=== PATIENT | female | born 2000 | race Caucasian/White ===

== ENCOUNTER 2021-10-02 22:26 | Emergency (ER) | payer OTHER, SELFPAY ==
[2021-10-02 22:08] VITALS: BP 140/100; PULSE 124; RESP 16; TEMP 36.6; O2SAT 100; BMI 30.2
[2021-10-02 22:09] VITALS: BMI 28.1
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
[2021-10-02 22:43] LABS: Basophils # 0.1 K/mm3 (0-0.2); Eosinophils # 0.1 K/mm3 (0.0-0.4); Eosinophils % 0.7 % (0.1-12.0); Hematocrit 38.6 % (37.0-47.0); Hemoglobin 12.2 g/dL (12.2-16.2); Lymphocytes % 21.3 % (10-50); Mean Corpuscular HGB Conc 31.7 g/dL (31.8-35.4); Mean Corpuscular Hemoglobin 25.5 pg (27.0-31.2); Mean Corpuscular Volume 80.5 fl (81-99); Mean Platelet Volume 8.5 fl (7.4-10.4); Monocytes # 0.5 K/mm3 (0.1-1.0); Monocytes % 4.9 % (1.7-9.3); Neutrophils # 6.8 K/mm3 (1.8-7.8); Neutrophils % 72.2 % (37.0-80.0); Platelet Count 344 K/mm3 (142-424); Red Cell Distribution Width 15.1 % (11.5-17.5); White Blood Count 9.5 K/mm3 (4.8-10.8)
[2021-10-02 22:49] LABS: Chloride 107 mmol/L (98-107); Potassium 3.7 mmoL/L (3.5-5.1); Sodium 141 mmol/L (136-145)
[2021-10-02 22:52] LABS: Alanine Aminotransferase 20 U/L (12-78); Albumin Level 4.5 g/dl (3.5-5.0); Albumin/Globulin Ratio 1.5 (1.1-1.8); Alkaline Phosphatase 67 U/L (38-126); Anion Gap 20.7 mEq/L (5-15); Aspartate Amino Transferase 35 U/L (14-36); Bilirubin,Total 0.3 mg/dl (0.2-1.3); Blood Urea Nitrogen 10 mg/dl (7-17); Carbon Dioxide 17 mmol/L (22.0-30.0); Creatinine Clearance Estimated 129 mL/min (50-200); Estimated Glomerular Filt Rate 78 ml/min (>60); GFR (African American) 94 ML/MIN (>60); Total Protein,Serum 7.5 g/dl (6.3-8.2)
[2021-10-02 22:53] LABS: Calcium 8.9 mg/dl (8.4-10.2); Glucose 115 mg/dl (74-100)
[2021-10-02 22:57] LABS: HCG Qualitative, Serum Negative (Negative)
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
--- NOTE | 2021-10-03 00:10 | PC.NURSE ---
ON PHONE WITH 'S
--- NOTE | 2021-10-03 00:30 | PC.NURSE ---
Pt agreeable to be tx to [facility] via private vehicle. Mother is going to take her to [facility] ED
[2021-10-03 00:44] VITALS: BP 158/87; PULSE 112; RESP 16; TEMP 36.8; O2SAT 99
== END 2021-10-03 00:50 | disposition short-term general hospital (02) ==
PROVIDERS: Emergency Provider Emergency Medicine; PCP Family Medicine
DX: S01.81XA Laceration without foreign body of other part of head, initial encounter (principal); S02.92XA Unspecified fracture of facial bones, initial encounter for closed fracture; V40.6XXA Car passenger injured in collision with pedestrian or animal in traffic accident, initial encounter; Y92.413 State road as the place of occurrence of the external cause
CPT/HCPCS: 70450; 70486; 71045; 72125; 72170; 80053; 84703; 85025; 96374; 99283